=== PATIENT | male | born 1985 | race Caucasian/White ===

== ENCOUNTER 2018-02-10 20:24 | Emergency (ER) | payer SELFPAY ==
[~2018-02-10] VITALS: Ht 182.9 cm; Wt 138.3 kg
[~2018-02-10 20:24] MED LIST: ACHD5005 PO; ALBU8.5H2 IH; ALPR.25T PO; ALPR0.5T72 PO; BUTA-234 PO; CIPR500T78 PO; CYCL10TA9 PO; DOXY100C2 PO; HYOS0.1283 SL; INDO25CA PO; LISI20TA PO; ONDA-42 SL; ONDA4TAB8 PO; ONDA8TAB13 PO; PRD20T PO; PREDISONE; PRM25T PO; SERT25TA PO; TRAM-21 PO
--- OUTSIDE RECORDS SUMMARY | 2018-02-10 21:15 | XMS REPORT ---
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
--- OUTSIDE RECORDS SUMMARY | 2018-02-10 21:15 | XMS REPORT ---
Author SOLOMON Allison [facility] eClinicalWorks Address Unknown Phone Unavailable Care Team Providers Care Mud Boss Name Role Phone SOLOMON MENDEZ CP Unavailable Allergies No Known Allergies Problems Problem Type Condition ICD-9 Code Onset Dates Condition Status Problem Essential hypertension, benign 401.1 Active Problem Dysthymic disorder 300.4 Active Medications No Known Medications Results No Known Results Summary Purpose eClinicalWorks Submission
--- OUTSIDE RECORDS SUMMARY | 2018-02-10 21:15 | XMS REPORT ---
Author Author KEON CANDELARIA Organization [facility] Address [address] [place] [address] Care Team Providers Care Herbologist Name Role Phone SYLVIA CANDELARIAA Unavailable PROBLEMS Type Condition ICD9-CM Code DCL23-MD Code Onset Dates Condition Status SNOMED Code Problem Hyperlipidemia LDL goal <100 E78.5 Active 76420285 Problem Essential hypertension I10 Active 34113796 Problem Anxiety F41.9 Active 31565731 Problem Vitiligo L80 Active 17850429 ALLERGIES Substance Reaction Event Type Date Status Penicillin V Potassium rash Drug Allergy Oct, Active Cephalexin rash Drug Allergy Oct, Active Augmentin rash Drug Allergy Oct, Active SOCIAL HISTORY No smoking Hx information available PLAN OF CARE Activity Details Follow Up 2 Months or pending lab Reason:anxiety VITAL SIGNS Height 72 in 2016-10-30 Weight 325 lbs 2016-10-30 Temperature 98.1 degrees Fahrenheit 2016-10-30 Heart Rate 94 bpm 2016-10-30 Respiratory Rate 20 2016-10-30 BMI 44.07 kg/m2 2016-10-30 Blood pressure systolic 138 mmHg 2016-10-30 Blood pressure diastolic 86 mmHg 2016-10-30 MEDICATIONS Medication Instructions Dosage Frequency Start Date End Date Duration Status Sertraline HCl 100mg orally daily 1 tablets 24h 30 Active Lisinopril 20 MG orally daily 1 tablet 24h 30 Active RESULTS Name Result Date Reference Range A1C (IN HOUSE) 2016-10-30 A1C IN HOUSE 5.5 4.3 - 5.6 % Previous A1c Lot [id number] Exp date PROCEDURES Procedure Date Ordered Related Diagnosis Body Site GLYCATED HEMOGLOBIN TEST Oct 30, 2016 ASSAY THYROID STIM HORMONE Oct 30, 2016 Office Visit, Est Pt., Level 4 Oct 30, 2016 LIPID PANEL Oct 30, 2016 COMPREHEN METABOLIC PANEL Oct 30, 2016 VENIPUNCT, ROUTINE* Oct 30, 2016 COMPLETE CBC W/AUTO DIFF WBC Oct 30, 2016 IMMUNIZATIONS No Known Immunizations
--- OUTSIDE RECORDS SUMMARY | 2018-02-10 21:15 | XMS REPORT ---
Author Author KEON CANDELARIA Organization eClinicalWorks Address Unknown Phone Unavailable Care Team Providers Care Postage Machine Operator Name Role Phone KEON CANDELARIA CP Unavailable Allergies, Adverse Reactions, Alerts Substance Reaction Event Type N.K.D.A. Info Not Available Non Drug Allergy Problems Problem Type Condition Code Onset Dates Condition Status Problem Essential hypertension, benign 401.1 Active Assessment Hypertension I10 Active Problem Dysthymic disorder 300.4 Active Assessment Dysthymia F34.1 Active Medications Medication Code System Code Instructions Start Date End Date Status Dosage Sertraline HCl [facility] [place] [address]-38 50 MG Orally Once a day TAKE ONE TABLET BY MOUTH DAILY Lisinopril [facility] [place] [address]-89 20 MG Orally Once a day February 21, 2015 1 tablet by Oral route 1 time per day Procedures Procedure Coding System Code Date Office Visit, Est Pt., Level 3 CPT-4 54801 Sep 27, 2015 VENIPUNCT, ROUTINE* CPT-4 67250 Sep 27, 2015 COMPREHEN METABOLIC PANEL CPT-4 65059 Sep 27, 2015 Vital Signs Date/Time: Sep 27, 2015 Temperature 97.4 F Weight 297.2 lbs Height 72 in BMI 40.30 Index Blood Pressure Diastolic 82 mmHg Blood Pressure Systolic 136 mmHg Cardiac Monitoring Heart Rate 76 bpm Results Name Result Date Reference Range Unit Abnormality Flag ROUTINE VENIPUNCTURE Summary Purpose eClinicalWorks Submission
--- OUTSIDE RECORDS SUMMARY | 2018-02-10 21:15 | XMS REPORT ---
Author Author ERIN FIERRO Organization eClinicalWorks Address Unknown Phone Unavailable Care Team Providers Care Medical Technologist Blood Bank Name Role Phone ERIN FIERRO CP Unavailable Allergies, Adverse Reactions, Alerts Substance Reaction Event Type Penicillin V Potassium rash Drug Allergy Cephalexin rash Drug Allergy Augmentin rash Drug Allergy Problems Problem Type Condition Code Onset Dates Condition Status Problem Essential hypertension, benign 401.1 Active Assessment Acute bronchitis J20.9 Active Problem Dysthymic disorder 300.4 Active Medications Medication Code System Code Instructions Start Date End Date Status Dosage Lisinopril [facility] [place] [address]-31 20 MG Orally Once a day February 21, 2015 1 tablet by Oral route 1 time per day PredniSONE [facility] [place] [address]-13 10 MG Orally Twice a day Oct 28, 2015Oct 1 tablet with food or milk Sertraline HCl [facility] [place] [address]-39 50 MG Orally Once a day TAKE ONE TABLET BY MOUTH DAILY Procedures Procedure Coding System Code Date Office Visit, Est Pt., Level 3 CPT-4 91865 Oct 28, 2015 MEASURE BLOOD OXYGEN LEVEL CPT-4 42305 Oct 28, 2015 Vital Signs Date/Time: Oct 28, 2015 Temperature 97.6 F Weight 300.4 lbs Height 72 in Oximetry 98 % Blood Pressure Diastolic 80 mmHg Blood Pressure Systolic 130 mmHg Cardiac Monitoring Heart Rate 87 bpm BMI 40.74 Index Results No Known Results Summary Purpose eClinicalWorks Submission
--- OUTSIDE RECORDS SUMMARY | 2018-02-10 21:15 | XMS REPORT ---
Author Author KEON CANDELARIA Organization eClinicalWorks Address Unknown Phone Unavailable Care Team Providers Care Ham Rolling Machine Operator Name Role Phone KEON CANDELARIA CP Unavailable Allergies No Known Allergies Problems Problem Type Condition ICD-9 Code Onset Dates Condition Status Problem Essential hypertension, benign 401.1 Active Problem Dysthymic disorder 300.4 Active Medications No Known Medications Results No Known Results Summary Purpose eClinicalWorks Submission
--- OUTSIDE RECORDS SUMMARY | 2018-02-10 21:15 | XMS REPORT ---
Author Author ERIN FIERRO Organization eClinicalWorks Address Unknown Phone Unavailable Care Team Providers Care Machine Sewer Name Role Phone ERIN FIERRO CP Unavailable Allergies, Adverse Reactions, Alerts Substance Reaction Event Type Penicillin V Potassium rash Drug Allergy Cephalexin rash Drug Allergy Augmentin rash Drug Allergy Problems Problem Type Condition Code Onset Dates Condition Status Problem Essential hypertension, benign 401.1 Active Assessment Viral gastritis K29.70 Active Problem Dysthymic disorder 300.4 Active Medications Medication Code System Code Instructions Start Date End Date Status Dosage Sertraline HCl [facility] [address]-10 50 MG Orally Once a day TAKE ONE TABLET BY MOUTH DAILY Lisinopril [facility] [address]-51 20 MG Orally Once a day February 21, 2015 1 tablet by Oral route 1 time per day Procedures Procedure Coding System Code Date Office Visit, Est Pt., Level 3 CPT-4 92289 Nov 11, 2015 Vital Signs Date/Time: Nov 11, 2015 Temperature 98.5 F Weight 300.4 lbs Height 72 in BMI 40.74 Index Blood Pressure Diastolic 102 mmHg Blood Pressure Systolic 142 mmHg Cardiac Monitoring Heart Rate 90 bpm Results No Known Results Summary Purpose eClinicalWorks Submission
--- OUTSIDE RECORDS SUMMARY | 2018-02-10 21:15 | XMS REPORT ---
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
--- OUTSIDE RECORDS SUMMARY | 2018-02-10 21:16 | XMS REPORT ---
Author Author ERIN FIERRO [facility] eClinicalWorks Address Unknown Phone Unavailable Care Team Providers Care Easter Bunny Name Role Phone ERIN FIERRO CP Unavailable Allergies, Adverse Reactions, Alerts Substance Reaction Event Type Penicillin V Potassium rash Drug Allergy Cephalexin rash Drug Allergy Augmentin rash Drug Allergy Problems Problem Type Condition Code Onset Dates Condition Status Problem Essential hypertension, benign 401.1 Active Assessment Oral thrush B37.0 Active Problem Dysthymic disorder 300.4 Active Assessment Acute diarrhea R19.7 Active Assessment Benign essential hypertension I10 Active Medications Medication Code System Code Instructions Start Date End Date Status Dosage Nystatin [facility] [address]-19 354776 UNIT/ML Mouth/Throat, swish and swallow Three times a day Dec 06, 2015 Dec 11, 2015 5 mls Fluconazole [facility] [address]-82 150 MG Orally Once a day Dec 06, 2015 1 tablet Sertraline HCl [facility] [address]-12 50 MG Orally Once a day TAKE ONE TABLET BY MOUTH DAILY Lisinopril [facility] [address]-43 20 MG Orally Once a day February 21, 2015 1 tablet by Oral route 1 time per day Procedures Procedure Coding System Code Date Office Visit, Est Pt., Level 3 CPT-4 59002 Dec 06, 2015 Vital Signs Date/Time: Dec 06, 2015 Temperature 98.1 F Weight 296.8 lbs Height 72 in BMI 40.25 Index Blood Pressure Diastolic 102 mmHg Blood Pressure Systolic 160 mmHg Cardiac Monitoring Heart Rate 90 bpm Results No Known Results Summary Purpose eClinicalWorks Submission
--- OUTSIDE RECORDS SUMMARY | 2018-02-10 21:16 | XMS REPORT | Continuity of Care Document ---
Author Author [facility] Address Unknown Phone Unavailable Allergies Active Description Code Type Severity Reaction Onset Reported/Identified Relationship to Patient Clinical Status Yes Augmentin Drug Allergy N/A N/A 10/11/2010 Yes Cephalosporins Drug Allergy N /A N/A 10/11/2010 Yes Penicillins Drug Allergy N/A N/A 10/11/2010 Yes amoxicillin trihydrate [id number] Drug Allergy Unknown RASH 06/06/2011 Yes PENICILLIN PENICILLIN Unknown RASH 06/06/2011 Yes potassium clavulanate [id number] Drug Allergy Unknown RASH 06/06/2011 Yes cefprozil [id number] Drug Allergy Mild N/A 09/11/2011 Medications There is no data. Problems Date Dx Coded Attending Type Code Diagnosis Diagnosed By 10/11/2010 SOLOMON MENDEZ DO 528.00 STOMATITIS AND MUCOSITIS UNSPECIFIED 11/13/2010 SOLOMON MENDEZ DO 079.99 UNSPECIFIED VIRAL INFECTION 12/05/2010 SOLOMON MENDEZ DO 465.9 UPPER RESPIRATORY INFECTION 01/13/2011 SOLOMON MENDEZ DO 278.02 OVERWEIGHT 01/13/2011 SOLOMON MENDEZ DO 401.9 HYPERTENSION, UNSPECIFIED ESSENTIAL 01/13/2011 SOLOMON MENDEZ DO 784.0 HEADACHE 05/13/2011 SOLOMON MENDEZ DO 380.10 INFECTIVE OTITIS EXTERNA UNSPECIFIED 06/06/2011 Ot 785.1 06/06/2011 Ot 786.52 06/25/2011 Ot 724.5 06/25/2011 Ot 789.09 09/11/2011 Ot 789.03 10/20/2011 Ot 608.9 09/13/2014 DEA OVIEDO Ot 276.51 09/13/2014 DEA OVIEDO Ot 466.0 09/13/2014 DEA OVIEDO Ot 599.70 09/13/2014 DEA OVIEDO Ot 787.01 09/13/2014 DEA OVIEDO Ot 787.91 09/23/2014 CARSON DIAMOND DO Ot 276.51 09/23/2014 CARSON DIAMOND DO Ot 593.9 09/23/2014 CARSON DIAMOND DO Ot 789.09 12/05/2014 SOLOMON MENDEZ DO 300.4 DYSTHYMIC DISORDER 12/05/2014 SOLOMON MENDEZ DO 401.1 HYPERTENSION, BENIGN ESSENTIAL 03/14/2015 KWESI SIMS MD Ot 787.01 03/14/2015 KWESI SIMS MD Ot 787.91 Procedures Code [place] [address] ROUTINE VENIPUNCTURE 12/05/2014 02252 CMP 12/05/2014 19529 TSH 12/05/2014 Results There is no data. Encounters ACCT No. Visit Date/Time Discharge Status Pt. Type Provider Facility Loc./Unit Complaint [id number] 12/05/2014 14:45:00 12/05/2014 23:59:59 CLS Outpatient SOLOMON MENDEZ DO [id number] 11/24/2015 00:07:00 11/24/2015 02:10:00 DIS Emergency CARSON DIAMOND DO [facility] ER [id number] 03/14/2015 09:21:00 03/14/2015 11:28:00 DIS Emergency KWESI SIMS MD [facility] ER [id number] 09/23/2014 09:56:00 09/23/2014 11:19:00 DIS Emergency CARSON DIAMOND DO [facility] ER [id number] 09/13/2014 19:48:00 09/13/2014 23:12:00 DIS Emergency DEA OVIEDO [facility] ER [id number] 11/16/2013 10:40:00 11/16/2013 23:59:59 CLS Outpatient [id number] 10/20/2011 16:57:00 Document Registration [id number] 09/11/2011 21:40:00 Document Registration [id number] 06/24/2011 22:44:00 Document Registration [id number] 06/06/2011 11:08:00 Document Registration
--- OUTSIDE RECORDS SUMMARY | 2018-02-10 21:16 | XMS REPORT ---
Author SOLOMON Allison [facility] eClinicalWorks Address Unknown Phone Unavailable Care Team Providers Care Non Destructive Evaluation Manager Name Role Phone SOLOMON MENDEZ CP Unavailable Allergies No Known Allergies Problems Problem Type Condition ICD-9 Code Onset Dates Condition Status Problem Essential hypertension, benign 401.1 Active Assessment Encounter for PPD test V74.1 Active Problem Dysthymic disorder 300.4 Active Medications No Known Medications Procedures Procedure Coding System Code Date TB INTRADERMAL TEST CPT-4 98856 Jul 21, 2015 Results No Known Results Summary Purpose eClinicalWorks Submission
--- OUTSIDE RECORDS SUMMARY | 2018-02-10 21:16 | XMS REPORT ---
Author Author KEON CANDELARIA [facility] eClinicalWorks Address Unknown Phone Unavailable Care Team Providers Care Air Turning Machine Feeder Name Role Phone KEON CANDELARIA CP Unavailable Allergies No Known Allergies Problems Problem Type Condition Code Onset Dates Condition Status Problem Essential hypertension, benign 401.1 Active Problem Dysthymic disorder 300.4 Active Medications Medication Code System Code Instructions Start Date End Date Status Dosage Sertraline HCl [facility] [place] [address]-61 50 MG TAKE ONE TABLET BY MOUTH DAILY Results No Known Results Summary Purpose eClinicalWorks Submission
--- NOTE | 2018-02-10 23:10 | ED Chest Pain ---
General Chief Complaint: Chest Pain Stated Complaint: CHEST DISCOMFORT Nursing Triage Note: pt presents to er with complaint of chest pain. pt says at rest his chest does not hurt at rest, but hurts whenever he moves his arms. states he took ib profen and his pain is improved. states he does have anxiety. Nursing Sepsis Screen: No Definite Risk Source: patient Exam Limitations: no limitations History of Present Illness Date Seen by Provider: Feb 10, 2018 Time Seen by Provider: 21:39 Initial Comments This 33-year-old gentleman presents to the emergency room with occasional chest pains over the past few days. He had similar episodes in the past related to poor sleep. Pain has been treated twice with ibuprofen and resolved. He is currently pain-free. Patient notes that he has started working out at the gym recently. Pain does seem to be worse with upper body movements. He denies any shortness of breath, cough, or fever. Patient also has a slightly darkened area of skin on his chest which she states is migratory. He has a small patch on the left side of his neck as well. He also has acanthosis nigricans which he inquires about. Allergies and Home Medications Allergies Coded Allergies: Cefprozil (Verified Allergy, Mild, 09/11/11) Amoxicillin Trihydrate (Unverified Adverse Reaction, RASH, 06/06/11) Potassium Clavulanate (Unverified Adverse Reaction, RASH, 06/06/11) Uncoded Allergies: PENICILLIN (Adverse Reaction, RASH, 06/06/11) STATES NOT SURE HAPPENED A CHILD Home Medications Cyclobenzaprine Hcl 10 Mg Tablet, 1 EACH PO Q8HR Prescribed by: CARSON DIAMOND on 09/23/14 1052 Hyoscyamine Sulfate 0.125 Mg Tab.subl, 1-2 TAB SL Q4H Prescribed by: CARSON DIAMOND on 11/24/15 0152 Lisinopril 20 Mg Tablet, 20 MG PO DAILY, (Reported) Ondansetron 4 Mg Tab.rapdis, 4 MG PO Q4H Prescribed by: CARSON DIAMOND on 11/24/15 0152 Promethazine Hcl 25 Mg Tab, 25 MG PO Q6H PRN for NAUSEA/VOMITING Prescribed by: KWESI SIMS on 03/14/15 1016 Sertraline Hcl 25 Mg Tablet, 25 MG PO DAILY, (Reported) Patient Home Medication List Home Medication List Reviewed: Yes Review of Systems Constitutional: no symptoms reported EENTM: No Symptoms Reported Respiratory: No Symptoms Reported Cardiovascular: No Symptoms Reported Gastrointestinal: No Symptoms Reported Genitourinary: No Symptoms Reported Musculoskeletal: see HPI Skin: see HPI Psychiatric/Neurological: No Symptoms Reported Endocrine: No Symptoms Reported Past Zjsyczi-Jdzwom-Bssgqx Hx Patient Social History Alcohol Use: Denies Use Recreational Drug Use: No Smoking Status: Never a Smoker Recent Foreign Travel: No Contact w/Someone Who Travel: No Recent Infectious Disease Expo: No Recent Hopitalizations: No Immunizations Up To Date PED Vaccines UTD: Yes Seasonal Allergies Seasonal Allergies: No Surgeries History of Surgeries: Yes (WISDOM TEETH) Respiratory History of Respiratory Disorde: Yes (history of pleurisy) Cardiovascular History of Cardiac Disorders: Yes Cardiac Disorders: Hypertension Neurological History of Neurological Disord: No Reproductive System Hx Reproductive Disorders: No Gastrointestinal History of Gastrointestinal Di: No Musculoskeletal History of Musculoskeletal Dis: No Endocrine History of Endocrine Disorders: No HEENT History of HEENT Disorders: No Cancer History of Cancer: No Psychosocial History of Psychiatric Problem: Yes Behavioral Health Disorders: Anxiety, Depression Integumentary History of Skin or Integumenta: No Blood Transfusions History of Blood Disorders: No Family Medical History Family Medial History: Patient reports no known family medical history. Physical Exam Vital Signs Vital Signs - First Documented 02/10/18 21:00 Temp 98.0 Pulse 87 Resp 20 B/P (MAP) 144/99 (114) Pulse Ox 97 O2 Delivery Room Air Capillary Refill : Less Than 3 Seconds General Appearance: No Apparent Distress, WD/WN, Obese HEENT: PERRL/EOMI, Normal ENT Inspection Neck: Normal Inspection Respiratory: Chest Non Tender, Lungs Clear, Normal Breath Sounds, No Accessory Muscle Use, No Respiratory Distress Cardiovascular: Regular Rate, Rhythm, No Edema, No Murmur Gastrointestinal: Normal Bowel Sounds, Non Tender, Soft Extremity: Normal Inspection, Non Tender, No Calf Tenderness, No Pedal Edema, Other (negative Per) Neurologic/Psychiatric: Alert, Oriented x3, No Motor/Sensory Deficits, Normal 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 Acanthosis nigricans) Progress/Results/Core Measures Results/Orders My Orders Orders - SUKH SPENCER MD Chest Pa/Lat (2 View) (02/10/18 21:39) Vital Signs/I&O Vital Sign - Last 12Hours 02/10/18 02/10/18 21:00 23:15 Temp 98.0 98.0 Pulse 87 80 Resp 20 20 B/P (MAP) 144/99 (114) 138/88 (114) Pulse Ox 97 97 O2 Delivery Room Air Blood Pressure Mean: 114 Progress Note : Progress Note Characteristics of chest pain are consistent with chest wall pain or costochondritis. No further workup was pursued. Chest x-ray was unremarkable. Patient remained pain-free during his ER stay. We did discuss his 2 areas of skin change. The area on his chest looks like it may be a tinea versicolor and he was advised to try hbsl-gwk-dygukiv anti-fungals. The discoloration at the base of his neck is acanthosis nigricans. He is encouraged to continue having annual screening for diabetes and continue to work on exercise and weight loss. Diagnostic Imaging Diagonstic Imaging: Xray Plain Films/CT/US/NM/MRI: chest Comments Chest x-ray viewed by me. Report not yet available. No acute abnormalities appreciated. Departure Impression Impression: Primary Impression: Atypical chest pain Additional Impressions: Acanthosis nigricans Rash Disposition: 01 HOME, SELF-CARE Condition: Improved Departure-Patient Inst. Decision time for Depature: 23:00 Referrals: [facility] (PCP/Family) Primary Care Physician Patient Instructions: Chest Pain That Is Not Caused by the Heart (DC), Costochondritis (DC) Add. Discharge Instructions: You may continue taking ibuprofen up to 600 mg every 6 hours as needed for pain. Add Tylenol (acetaminophen) up to 1000 mg every 6 hours as needed for additional pain relief. Follow-up with your primary care provider if not improving after couple of days. Return to emergency room if you have significant worsening in symptoms or if you develop new symptoms such as shortness of breath, lightheadedness, fever, etc. All discharge instructions reviewed with patient and/or family. Voiced understanding. SUKH SPENCER MD Feb 10, 2018 23:10
[2018-02-10 23:15] VITALS: BP 138/88
--- NOTE | 2018-02-11 05:57 | Diagnostic Imaging Report ---
INDICATION: Chest pain. COMPARISON: 09/13/2014 FINDINGS: Frontal and lateral views of the chest demonstrate normal heart size and pulmonary vascularity. The lungs are clear. There are no signs of infiltrate, pleural effusions or pneumothoraces. The visualized osseous structures show no acute abnormalities. IMPRESSION: 1. No acute process. No signs of infiltrates, effusions or pneumothoraces. Dictated by: Dictated on workstation # [id number]
== END 2018-02-10 23:30 | disposition home or self-care (01) ==
LOC: EDUNIT# 20:24 → ER 20:25
DX: R07.89 Other chest pain (principal); I10 Essential (primary) hypertension; F41.9 Anxiety disorder, unspecified; F32.9 Major depressive disorder, single episode, unspecified; Z88.1 Allergy status to other antibiotic agents; Z88.8 Allergy status to other drugs, medicaments and biological substances; Z88.0 Allergy status to penicillin
CPT/HCPCS: 71046